=== PATIENT | female | born 1985 | race Caucasian/White ===

== ENCOUNTER → 2017-03-11 | Outpatient (CLI) | payer BC ==
[~2017-03-11] MED LIST: ACE3 PO; ALBU8.5H12 IH; AZEL23SP NS; CHOL10005 PO; DIPH-741 PO; DOCU-416 PO; FEXO-67 PO; IBU800 PO; IBUP-2704 PO; LEV112 PO; LEVO-85 PO; LEVO100T95 PO; LEVO1TAB29 PO; LEVO1TAB31 PO; LOR10 PO; MOMR ENA; MONT10TA PO; MULT-1335 PO; OXYC-865 PO; PRED20TA6 PO; PREN-67 PO
== END ==
LOC: LAB 14:51
PROVIDERS: ATTEND Otolaryngology
DX: J30.9 Allergic rhinitis, unspecified (principal)
CPT/HCPCS: 36415; 86003

== ENCOUNTER → 2017-05-22 | Outpatient (CLI) | payer BC ==
--- NOTE | 2017-05-25 11:46 | RADIOLOGY IMAGING REPORT ---
FACILITY: [facility] - [place], [place] PATIENT NAME: TERENCE ALTMAN : [id number] MR: [id number] V: [id number] EXAM DATE: ORDERING PHYSICIAN: SATURNINO ISLAS TECHNOLOGIST: Qi Wong PROCEDURE:US RIGHT BREAST COMPARISON:None. INDICATIONS:RT BREAST LUMP 3 o'clock position of the Right breast. The patient also states a palpable finding in the 9 o'clock position of the Right breast. FINDINGS: In the approximate 10 o'clock position of the Right breast there is a tiny hypoechoic structure measuring 3.3 x 1.6 x 2.5mm in the superficial Right breast 6cm from the nipple. On the cine loop images this has the appearance of normal fibroglandular tissue. Clinical follow-up recommended for patient's palpable finding. DIAGNOSTIC CATEGORY 2--BENIGN FINDING. RECOMMENDATIONS: CLINICAL EVALUATION. IMPRESSION: BIRADS 2: Benign finding No significant abnormality identified to account for patient's palpable findings in the Right breast therefore clinical follow-up recommended Dictated by: Ingrid Giordano M.D. on 05/22/2017 at 14:25 Transcribed by: ANNI on 05/25/2017 at 8:45 Approved by: Ingrid Giordano M.D. on 05/25/2017 at 11:45 [facility]
--- NOTE | 2017-05-25 11:46 | RADIOLOGY IMAGING REPORT ---
FACILITY: [facility] - [place] PATIENT NAME: TERENCE ALTMAN : [id number] MR: [id number] V: [id number] EXAM DATE: ORDERING PHYSICIAN: SATURNINO ISLAS TECHNOLOGIST: Marleen Stock PROCEDURE:BILATERAL DIAGNOSTIC DIGITAL MAMMOGRAM WITH CAD ASSISTED INTERPRETATION & 3D TOMOSYNTHESIS COMPARISON:Prior mammograms 07/12/12 INDICATIONS:Palpable Lumps Zone 3 in the 9 o'clock position of the Right breast. FINDINGS: Moderate amount of fibroglandular tissue is seen throughout the breasts. The parenchymal pattern has remained stable allowing for difference in mammographic technique & patient positioning. There is no evidence of malignant appearing mass, malignant appearing calcifications or other secondary sign of malignancy in either breast. DIAGNOSTIC CATEGORY 2--BENIGN FINDING. RECOMMENDATIONS: CLINICAL EVALUATION. IMPRESSION: BIRADS 2: Benign finding No significant abnormality is seen Clinical follow-up recommended for patients palpable findings in the Right breast Dictated by: Ingrid Giordano M.D. on 05/22/2017 at 14:27 Transcribed by: ANNI on 05/25/2017 at 8:43 Approved by: Ingrid Giordano M.D. on 05/25/2017 at 11:44 [facility]
== END ==
LOC: MAMO 03:36
PROVIDERS: ATTEND Obstetrics & Gynecology
DX: N63.11 Unspecified lump in the right breast, upper outer quadrant (principal)
CPT/HCPCS: 77062; 77066

== ENCOUNTER 2017-06-25 01:28 | Day surgery (SDC) | payer BC ==
[~2017-06-25] VITALS: Ht 157.5 cm; Wt 59.9 kg
[~2017-06-25 01:28] MED LIST changes: +SCOP1PAT16 TD
[2017-06-25] MEDS ORDERED: FAMOTIDINE 20 MG TAB PO ONE (07:45)
[2017-06-25] MEDS ORDERED: NORMOSOL R SOLN(*) 1000 ML BAG 1,000 ML IV PRN (07:45)
[2017-06-25] MEDS ORDERED: LIDOCAINE/SOD BICARB 8.4% SYR ID ONE (07:45)
[2017-06-25] MEDS ORDERED: MIDAZOLAM 2 MG/2 ML VIAL IVP PRN (07:45)
[2017-06-25] MEDS ORDERED: fentaNYL CITR 100 MCG/2 ML AMP ONE (08:24)
[2017-06-25] MEDS ORDERED: PROPOFOL EMUL(*) 10MG/ML 20 ML 80 ML ONE (08:25)
[2017-06-25] MEDS ORDERED: LIDOCAINE MPF 1% 5 ML VIAL ONE (08:25)
[2017-06-25] MEDS ORDERED: DEXAMETHASONE SOD PHOS 10MG/ML ONE (08:25)
[2017-06-25] MEDS ORDERED: ONDANSETRON 4 MG/2 ML VIAL ONE (08:25)
[2017-06-25 08:53] VITALS: BP 102/69
[2017-06-25] MEDS ORDERED: ROPIVACAINE 0.5% 20 ML VIAL ONE (10:43)
[2017-06-25] MEDS ORDERED: KETAMINE HCL 200 MG/20 ML MDV ONE (11:00)
[2017-06-25] MEDS ORDERED: HYDR-385 PO (11:41)
[2017-06-25] MEDS ORDERED: DOCU-416 PO (11:41)
--- NOTE | 2017-06-25 11:44 | Short(Outpt) Discharge Summary ---
Discharge Summary Reason for Hosp/Final Diag: (1) Lump of right breast Status: Chronic Hospital Course & Plan: Right breast lumpectomy completed without problems. Pt to go home from PACU if recovers from anesthesia without problems. Departure Discharge to: Home, Self Care Discharge Instructions Home Meds Active Scripts Docusate Sodium (COLACE) 100 Mg Capsule, 1 CAP PO BID, #30 CAP 0 Refills TAKE WITH A FULL GLASS OF WATER Prov:SATURNINO PRESTON MD 06/25/17 Hydrocodone Bit/Acetaminophen (HYDROCODON-ACETAMINOPHEN 5-325) 1 Each Tablet, 1- 2 TAB PO Q4H Y for PAIN, #20 TAB 0 Refills Prov:SATURNINO PRESTON MD 06/25/17 Scopolamine (Scopolamine) 1 Mg/3 Day Patch.td.3, 1 PATCH.72H TD ONCE, #1 PATCH.72H 0 Refills Apply to the skin behind your ear lobe 24 hours before surgery Prov:SATURNINO PRESTON MD 06/10/17 Azelastine/Fluticasone (DYMISTA NASAL SPRAY) 23 Gm [place].pump, 1 SPRAY NS BID for 30 Days, #1 BOT 6 Refills Prov:ALBA DIETZ JR, MD 12/01/16 Reported Medications Cholecalciferol (Vitamin D3) (VITAMIN D3) Unknown Strength Tablet, PO, TAB 12/02/16 Diphenhydramine Hcl (BENADRYL ALLERGY) 25 Mg Tablet, 25 MG PO Q6-8H, TAB 12/02/16 Montelukast Sodium (SINGULAIR) 10 Mg Tablet, 1 TAB PO QDAY, TAB 12/02/16 Fexofenadine Hcl (JHONATAN ALLERGY) 180 Mg Tablet, 180 MG PO QDAY 12/02/16 Levothyroxine Sodium (LEVOTHYROXINE SODIUM) 0.112 Mg Tab, 0.112 MG PO QDAY, TAB 12/02/16 Ibuprofen (MOTRIN) 800 Mg Tablet, 800 MG PO TID Y for PAIN, #30 10/07/12 Follow up Referrals: General Surgery - 07/14/17 @ Surgery, General with Saturnino Preston Md You have a follow up appointment scheduled with Dr. Preston on 07/14/17, at 11: 00am. Diet: Regular Activity: As Tolerated Special Instructions: You may remove the white surgical dressing on 06/27/17, then you can shower. After showering, leave the incision open to air but leave the steristrips in place until they fall off on their own. Do not immerse the incision for 2 weeks. SATURNINO PRESTON MD Jun 25, 2017 11:44
--- NOTE | 2017-06-25 11:48 | Post Operative Progress Note ---
Post Operative Progress Note Date: Jun 25, 2017 Time: 11:44 Surgeon: Evangelina Dictation number: [id number] Anesthesia: LMA by Dr. Roman Pre-Op Diagnosis: Right breast lump Post-Op Diagnosis: [facility] Findings: C/W dx Procedure(s): Right breast lumpectomy Specimen Removed:(May be N/A): Right breast lump Complications: None Fluids: See anesthesia record Estimated Blood Loss: Minimal Date OP Note Dictated: Jun 25, 2017 Time OP Note Dictated: 11:44 SATURNINO PRESTON MD Jun 25, 2017 11:48
[2017-06-25] MEDS ORDERED: APAP/HYDROCODONE 325/5 TAB ONE (12:11)
[2017-06-25 12:28] VITALS: BP 93/59
[2017-06-25 13:13] VITALS: BP 103/60
[2017-06-25 13:42] VITALS: BP 91/49
[2017-06-25 13:44] VITALS: BP 95/66
--- NOTE | 2017-06-25 18:50 | OPERATIVE REPORT 1 ---
EVENT DATE: June 25, 2017 SURGEON: Gary Hutchinson MD ANESTHESIOLOGIST: Naveed Roman MD ANESTHESIA: LMA. PREOPERATIVE DIAGNOSIS Right breast lump. POSTOPERATIVE DIAGNOSIS Right breast lump. PROCEDURE PERFORMED Right breast lumpectomy. COMPLICATIONS None. CONDITION Stable. BLOOD LOSS Minimal. FINDINGS The patient had a lump that looked fairly unremarkable, like unremarkable breast tissue. SPECIMEN Right breast lump. INDICATIONS This is a 32-year-old female who presented to my office with a right breast lump. Imaging did not reveal anything that looked suspicious for cancer, and I offered her needle biopsy versus excision versus observation. She elected to have it excised. DESCRIPTION OF PROCEDURE The patient was brought to the operating room and placed supine on the operating table. LMA anesthesia was administered, and her right breast was prepped and draped in a sterile fashion. Timeout was completed. I had premarked the lump with her confirmation in the preop area, and so I anesthetized the skin over the lump and then made a curvilinear incision right over the lump. I dissected the dermis and subcutaneous fat, grasped the lump with a Goldsmith clamp, and then used electrocautery to dissect around the lump. I passed the lump off the field and sent it to Pathology. The wound was made hemostatic with electrocautery, irrigated, and dried. The subcutaneous tissues were reapproximated with interrupted 3-0 Vicryl sutures, and the skin was closed with interrupted 3-0 Vicryl dermal sutures and 4-0 Monocryl subcuticular sutures. The skin was cleaned and dried, and Steri-Strips were applied, followed by a sterile surgical dressing. The patient was awakened, extubated in the operating room, and transported to the recovery room in stable condition having tolerated the procedure without any apparent problems. GENA
== END 2017-06-25 12:19 | disposition home or self-care (01) ==
LOC: OR 01:28
PROVIDERS: ATTEND Surgery
DX: D24.1 Benign neoplasm of right breast (principal); E05.00 Thyrotoxicosis with diffuse goiter without thyrotoxic crisis or storm; J45.909 Unspecified asthma, uncomplicated; E03.9 Hypothyroidism, unspecified; Z90.710 Acquired absence of both cervix and uterus; Z88.0 Allergy status to penicillin; Z88.2 Allergy status to sulfonamides; Z88.5 Allergy status to narcotic agent
CPT/HCPCS: 19120; 88305; 88344; J1100; J2001; J2250; J2405; J2704; J2795; J3010; J3490

== ENCOUNTER → 2018-09-07 | Outpatient (CLI) | payer BC ==
[~2018-09-07] MED LIST changes: +ALB6.7R INH; +ARMTHY90PT PO; +BUDE0.5A6 IH; +FLUT1DIS28 IH; +HYDR-385 PO; +[UNRECOGNIZED DRUG - CODE] MC
== END ==
LOC: LAB 14:30
PROVIDERS: ATTEND Physician Assistant
DX: J30.2 Other seasonal allergic rhinitis (principal)
CPT/HCPCS: 36415; 86003